=== PATIENT | female | born 1950 | race Caucasian/White ===

== ENCOUNTER → 2017-07-02 | Outpatient (CLI) | payer MEDICARE ==
[2017-07-02 13:34] LABS: AUTOMATED NEUTROPHIL # 3.5 TH/MM3 (1.8-7.7); BASOPHIL % 0.5 % (0.0-2.0); EOSINOPHIL # 0.2 TH/MM3 (0-0.4); HEMATOCRIT 42.3 % (35.0-46.0); HEMO FLAGS DIFF FINAL; HEMOGLOBIN 14.3 GM/DL (11.6-15.3); LYMPH % 22.2 % (9.0-44.0); LYMPHOCYTE # 1.2 TH/MM3 (1.0-4.8); MEAN CORPUSCULAR HGB CONC 33.7 % (32.0-36.0); MONO % 7.7 % (0.0-8.0); MONOCYTE # 0.4 TH/MM3 (0-0.9); NEUT % 66.6 % (16.0-70.0); PLATELET COUNT 153 TH/MM3 (150-450); RED BLOOD COUNT 4.46 MIL/MM3 (4.00-5.30); RED CELL DISTRIBUTION WIDTH 13.5 % (11.6-17.2); WHITE BLOOD COUNT 5.2 TH/MM3 (4.0-11.0)
[2017-07-02 13:45] LABS: ALBUMIN 4.1 GM/DL (3.4-5.0); ANION GAP 7 MEQ/L (5-15); AST (GOT) 15 U/L (15-37); BICARBONATE 26.9 MEQ/L (21.0-32.0); BLOOD UREA NITROGEN 12 MG/DL (7-18); CALCIUM 8.6 MG/DL (8.5-10.1); CHLORIDE 109 MEQ/L (98-107); CREATININE 0.65 MG/DL (0.50-1.00); GLOMERULAR FILTRATION RATE 91 ML/MIN (>89); GLUCOSE,FASTING 100 MG/DL (74-99); POTASSIUM 4.1 MEQ/L (3.5-5.1); SODIUM (NA) 143 MEQ/L (136-145)
[2017-07-02 13:55] LABS: ALKALINE PHOSPHATASE 72 U/L (45-117); ALT (GPT) 18 U/L (10-53); TOTAL BILIRUBIN ADULT 0.3 MG/DL (0.2-1.0); TOTAL PROTEIN 6.8 GM/DL (6.4-8.2)
[2017-07-02 14:35] LABS: HEPATITIS C AB IgG NONREACTIVE (NONREACTIVE)
== END ==
LOC: PLAB 09:39
DX: Z00.01 Encounter for general adult medical examination with abnormal findings (principal); R19.7 Diarrhea, unspecified; Z11.59 Encounter for screening for other viral diseases
CPT/HCPCS: 36415; 80053; 84443; 85025; 86803

== ENCOUNTER 2017-07-15 14:10 | Emergency (ER) | payer MEDICARE ==
[~2017-07-15] VITALS: Ht 167.6 cm; Wt 69.0 kg
[2017-07-15 14:16] VITALS: BP 167/89; PULSE 73; RESP 18; TEMP 98.2; O2SAT 96
[2017-07-15] MEDS ORDERED: PROPARACAINE HCL 0.5% OPHT SOLN 15 ML BTL EACH EYE ONE (15:00)
[2017-07-15] MEDS ORDERED: CILO0.3S EACH EYE (15:28)
--- NOTE | 2017-07-15 15:28 | PD ---
HPI Chief Complaint: Eye Problems/Injury Time Seen by Provider: 14:49 Travel History International Travel<30 days: No Contact w/Intl Traveler<30days: No Traveled to known affect area: No PFSH Past Medical History ?: Not Allergies-Medications (Allergen,Severity, Reaction): Coded Allergies: No Known Allergies (Unverified , 07/15/17) Reported Meds & Prescriptions Reported Meds & Active Scripts Active No Active Prescriptions or Reported Medications Data Data Last Documented VS Vital Signs Date Time Temp Pulse Resp B/P (MAP) Pulse Ox O2 Delivery O2 Flow Rate FiO2 07/15/17 14:16 98.2 73 18 167/89 (115) 96 Room Air Orders Orders Proparacaine 0.5% Opth Soln (Alcaine 0.5 (07/15/17 15:00) MDM Medical Decision Making Medical Screen Exam Complete: Yes Emergency Medical Condition: Yes Differential Diagnosis conjunctivitis, contact lens keratitis, Narrative Course 67 year old female with conjunctivitis. Diagnosis Primary Impression: Conjunctivitis Qualified Codes: H10.9 - Unspecified conjunctivitis Referrals: [facility] Additional Instructions: do not where contact lenses. follow up with [facility] Ciprofloxacin Opth Drops (Ciloxan Opth Drops) 0.3% Soln 2 DROP EACH EYE Q4H for EYE INFECTION, #1 BOTTLE 0 Refills Prov: Hazel Greene 07/15/17 Disposition: 01 DISCHARGE HOME Condition: Stable Hazel Greene July 15, 2017 15:28
== END 2017-07-15 15:35 | disposition home or self-care (01) ==
LOC: PHED 14:10 → PHEFT 15:35
DX: H10.9 Unspecified conjunctivitis (principal)
CPT/HCPCS: 99283